=== PATIENT | female | born 1965 | race Caucasian/White ===

== ENCOUNTER 2020-04-15 12:54 | Emergency (ER) | payer OTHER, MEDICAID ==
[~2020-04-15] VITALS: Ht 172.7 cm; Wt 75.7 kg
--- NOTE | 2020-04-15 13:05 | NUR ---
Patient called, she is in the restroom.
[2020-04-15 13:07] VITALS: BP_SYST 143
--- NOTE | 2020-04-15 13:13 | NUR ---
Patient to ER bed 2 to gown for evaluation. Side rails up. Report given to CASSY Moralez.
--- NOTE | 2020-04-15 13:21 | NUR ---
ER Dr. Garcia at bedside examining patient.
--- NOTE | 2020-04-15 13:31 | NUR ---
Patient given written and verbal discharge instructions and verbalizes understanding. ER MD discussed with patient the results and treatment provided. Patient in stable condition. ID arm band removed. No Rx given. Patient educated on pain management and to follow up with PMD. Pain Scale 0/10. Opportunity for questions provided and answered. Medication side effect fact sheet provided.
== END 2020-04-15 13:31 | disposition home or self-care (01) ==
LOC: SED 12:54
DX: S09.90XA Unspecified injury of head, initial encounter (principal); X58.XXXA Exposure to other specified factors, initial encounter; Y93.89 Activity, other specified; Y92.89 Other specified places as the place of occurrence of the external cause; Y99.8 Other external cause status
CPT/HCPCS: 99281

== ENCOUNTER 2021-04-26 00:35 | Emergency (ER) | payer OTHER, MEDICAID ==
[~2021-04-26] VITALS: Ht 172.7 cm; Wt 75.7 kg
[2021-04-26 01:00] VITALS: BP_SYST 140
--- NOTE | 2021-04-26 01:10 | NUR ---
DR VIGIL IN TO ASSESS
--- NOTE | 2021-04-26 01:56 | NUR ---
Patient ambulatory to bed hallway
[2021-04-26] MEDS ORDERED: IBUPROFEN 600 MG TABLET PO ONE (02:00)
[2021-04-26] MEDS ORDERED: IBUPROFEN 600 MG TABLET ONE (02:16)
--- NOTE | 2021-04-26 02:16 | NUR ---
DR VIGIL IN TO REASSESS
[2021-04-26] MEDS ORDERED: IBUP-1969 PO (02:20)
--- NOTE | 2021-04-26 02:22 | NUR ---
UP AMBULATING TO BATHROOM, GUARDED GAIT
[2021-04-26 02:35] VITALS: BP_SYST 121
--- NOTE | 2021-04-26 02:35 | NUR ---
Patient given written and verbal discharge instructions and verbalizes understanding. ER MD discussed with patient the results and treatment provided. Patient in stable condition. ID arm band removed. Rx of IBU given. Patient educated on pain management and to follow up with PMD. Pain Scale 0/10 Opportunity for questions provided and answered. Medication side effect fact sheet provided.
== END 2021-04-26 02:35 | disposition home or self-care (01) ==
LOC: SED 00:35
DX: S92.502A Displaced unspecified fracture of left lesser toe(s), initial encounter for closed fracture (principal); Z79.899 Other long term (current) drug therapy; W22.8XXA Striking against or struck by other objects, initial encounter; Y93.89 Activity, other specified; Y92.89 Other specified places as the place of occurrence of the external cause; Y99.8 Other external cause status
CPT/HCPCS: 99283